=== PATIENT | female | born 1985 | race Caucasian/White ===

== ENCOUNTER 2021-09-19 07:54 | Outpatient (CLI) | payer BC, SELFPAY ==
[2021-09-19 08:47] LABS: Basophils % 0.3 %; Eosinophils % 0.5 %; Hematocrit 45.2 % (37.0-47.0); Lymphocytes # 0.9 10^3/uL (0.8-4.8); Lymphocytes % 15.6 %; Mean Corpuscular HGB Conc 33.2 g/dL (30.0-36.0); Mean Corpuscular Hemoglobin 28.4 pg (28.0-34.0); Mean Corpuscular Volume 85.4 fl (81-99); Mean Platelet Volume 13.3 fL (7.4-10.4); Monocytes # 0.9 10^3/uL (0.2-0.9); Monocytes % 15.6 %; Neutrophils # 3.92 10^3/uL (1.8-7.7); Neutrophils % 66.5 %; Nucleated Red Blood Cells % 0 %; Platelet Count 53 10^3/cmm (130-400); Red Blood Count 5.29 10^6/uL (4.1-5.3); Red Cell Distribution Width 11.9 % (12.1-15.1); White Blood Count 5.9 10^3/uL (4.0-10.0)
[2021-09-19 09:14] LABS: Estmated Average Glucose 212
[2021-09-19 09:22] LABS: Alanine Aminotransferase 22 U/L (0-33); Albumin Level 3.9 g/dL (3.5-5.2); Alkaline Phosphatase 94 IU/L (35-105); Aspartate Amino Transferase 18 U/L (0-32); Blood Urea Nitrogen 9 mg/dL (6-20); Calcium 8.2 mg/dL (8.5-10.5); Carbon Dioxide 24 mmol/L (22-29); Chloride 99 mmol/L (98-107); Chol HDL Ratio 3.47 mg/dL (0.0-4.40); Cholesterol 118 mg/dL (0-200); Globulin 2.5 g/dL (1.3-4.6); Glomerular Filtration Rate 178.6 mL/min (90-130); Glucose 219 mg/dL (65-115); HDL Cholesterol 34 mg/dL (60-100); LDL Cholesterol Calculated 38 mg/dL (50-129); LDL HDL Ratio 1.12 RATIO (0.00-3.22); Osmolality Calculated 287 mOsm/kg (285-295); Sodium 136 mmol/L (136-145); Thyroid Stimulating Hormone 0.33 uIU/mL (0.27-4.20); Total Bilirubin 0.3 mg/dL (0.15-1.2); Total Protein 6.4 g/dL (6.6-8.7); Triglycerides 232 mg/dL (0-150)
[2021-09-19 09:44] LABS: Slide Review Slide Review Perform
== END 2021-09-19 07:55 | disposition home or self-care (01) ==
LOC: LAB 08:04
PROVIDERS: PCP Registered Nurse; Visit Provider Registered Nurse
DX: Z00.00 Encounter for general adult medical examination without abnormal findings (principal)
CPT/HCPCS: 36415; 80053; 80061; 83036; 84443; 85025

== ENCOUNTER 2021-09-23 12:44 | Outpatient (CLI) | payer BC, SELFPAY ==
[2021-09-23 13:00] VITALS: BP 147/99; PULSE 94; RESP 16; TEMP 36.6; O2SAT 98; BMI 39.9
[2021-09-23 13:40] VITALS: BP 148/96; PULSE 90; RESP 16; TEMP 36.6; O2SAT 98
[2021-09-23 14:34] VITALS: BP 122/81; PULSE 86; RESP 16; TEMP 36.8; O2SAT 98
== END 2021-09-23 12:45 | disposition home or self-care (01) ==
LOC: OPS 12:46
PROVIDERS: PCP Registered Nurse; Visit Provider Registered Nurse
DX: U07.1 COVID-19 (principal)
CPT/HCPCS: 96365

== ENCOUNTER 2022-10-25 08:37 | Oncology outpatient (recurring) (ONCR) | payer OTHER, SELFPAY ==
[2022-10-25 10:04] LABS: Basophils % 0.5 %; Eosinophils # 0.1 10^3/uL (0.0-0.8); Eosinophils % 0.8 %; Hematocrit 42.7 % (37.0-47.0); Hemoglobin 13.6 g/dL (11.5-15.3); Lymphocytes # 1.9 10^3/uL (0.8-4.8); Lymphocytes % 22.8 %; Mean Corpuscular HGB Conc 31.9 g/dL (30.0-36.0); Mean Corpuscular Hemoglobin 27.1 pg (28.0-34.0); Mean Corpuscular Volume 85.1 fl (81-99); Mean Platelet Volume 14.5 fL (7.4-10.4); Monocytes # 0.5 10^3/uL (0.2-0.9); Monocytes % 6.1 %; Neutrophils # 5.88 10^3/uL (1.8-7.7); Nucleated Red Blood Cells % 0 %; Platelet Count 81 10^3/cmm (130-400); Red Blood Count 5.02 10^6/uL (4.1-5.3); Red Cell Distribution Width 12.2 % (12.1-15.1); White Blood Count 8.5 10^3/uL (4.0-10.0)
[2022-10-25 10:08] LABS: Erythrocyte Sedimentation Rate 5 mm/hr (0-15)
[2022-10-25 10:29] LABS: Alanine Aminotransferase 17 U/L (0-33); Albumin Level 3.8 g/dL (3.5-5.2); Alkaline Phosphatase 80 U/L (35-105); Anion Gap 12.9 (5-19); Aspartate Amino Transferase 15 U/L (0-32); Blood Urea Nitrogen 8 mg/dL (6-20); C Reactive Protein 4.1 mg/L (0.0-4.9); Calcium 8.9 mg/dL (8.5-10.5); Carbon Dioxide 26 mmol/L (22-29); Chloride 100 mmol/L (98-107); Glomerular Filtration Rate 177.7 mL/min (90-130); Glucose 139 mg/dL (65-115); Iron 60 ug/dL (37-145); Lactate Dehydrogenase 242 U/L (135-214); Osmolality Calculated 281 mOsm/kg (285-295); Percent Saturation 18.2 % (20-50); Potassium 3.9 mmol/L (3.5-5.1); Sodium 135 mmol/L (136-145); Total Bilirubin 0.2 mg/dL (0.15-1.2); Total Iron Binding Capacity 329 mcg/dl; Total Protein 6.8 g/dL (6.6-8.7); Unsaturated Iron Binding 269 ug/dL (112-347)
[2022-10-25 10:40] LABS: Slide Review Slide Review Perform
[2022-10-25 10:41] LABS: Vitamin B12 445 pg/mL (232-1245)
[2022-10-25 10:44] LABS: LAB Peripheral Smear Sent for Review
[2022-10-27 13:40] LABS: Anti-Nuclear Antibody Screen POSITIVE (NEGATIVE)
== END 2022-10-31 23:59 | disposition home or self-care (01) ==
LOC: ONCMED 08:37
PROVIDERS: PCP Registered Nurse; Visit Provider Internal Medicine Medical Oncology
DX: D69.6 Thrombocytopenia, unspecified (principal); D50.9 Iron deficiency anemia, unspecified; R53.83 Other fatigue; L40.9 Psoriasis, unspecified; R09.82 Postnasal drip; Z79.899 Other long term (current) drug therapy
CPT/HCPCS: 36415; 80053; 82607; 83540; 83550; 83615; 85025; 85651; 86038; 86140

== ENCOUNTER 2023-01-03 16:11 | Outpatient (CLI) | payer OTHER, SELFPAY ==
[2023-01-03 17:02] LABS: Basophils % 0.3 %; Eosinophils # 0.2 10^3/uL (0.0-0.8); Eosinophils % 1.5 %; Hematocrit 42.2 % (37.0-47.0); Hemoglobin 13.8 g/dL (11.5-15.3); Lymphocytes # 3.2 10^3/uL (0.8-4.8); Lymphocytes % 31.3 %; Mean Corpuscular HGB Conc 32.7 g/dL (30.0-36.0); Mean Corpuscular Hemoglobin 27.8 pg (28.0-34.0); Mean Corpuscular Volume 84.9 fl (81-99); Mean Platelet Volume 15.3 fL (7.4-10.4); Monocytes # 0.8 10^3/uL (0.2-0.9); Monocytes % 7.5 %; Neutrophils # 5.98 10^3/uL (1.8-7.7); Neutrophils % 58.9 %; Nucleated Red Blood Cells % 0 %; Platelet Count 72 10^3/cmm (130-400); Red Blood Count 4.97 10^6/uL (4.1-5.3); Red Cell Distribution Width 12.5 % (12.1-15.1); White Blood Count 10.2 10^3/uL (4.0-10.0)
== END 2023-01-03 16:12 | disposition home or self-care (01) ==
LOC: LAB 16:15
PROVIDERS: PCP Registered Nurse; Visit Provider Nurse Practitioner
DX: D69.3 Immune thrombocytopenic purpura (principal); Z86.39 Personal history of other endocrine, nutritional and metabolic disease
CPT/HCPCS: 36415; 85025

== ENCOUNTER 2023-02-23 09:12 | Outpatient (CLI) | payer OTHER, SELFPAY ==
[2023-02-23 09:55] LABS: Basophils # 0.1 10^3/uL (0.0-0.1); Basophils % 0.5 %; Eosinophils # 0.1 10^3/uL (0.0-0.8); Eosinophils % 1.3 %; Hematocrit 42.9 % (37.0-47.0); Hemoglobin 13.9 g/dL (11.5-15.3); Lymphocytes # 2.2 10^3/uL (0.8-4.8); Lymphocytes % 20.5 %; Mean Corpuscular HGB Conc 32.4 g/dL (30.0-36.0); Mean Corpuscular Hemoglobin 27.5 pg (28.0-34.0); Mean Corpuscular Volume 84.8 fl (81-99); Mean Platelet Volume 13.8 fL (7.4-10.4); Monocytes # 0.7 10^3/uL (0.2-0.9); Monocytes % 6.3 %; Neutrophils # 7.66 10^3/uL (1.8-7.7); Neutrophils % 70.4 %; Nucleated Red Blood Cells % 0 %; Platelet Count 81 10^3/cmm (130-400); Red Blood Count 5.06 10^6/uL (4.1-5.3); Red Cell Distribution Width 12.3 % (12.1-15.1); White Blood Count 10.9 10^3/uL (4.0-10.0)
[2023-02-23 10:03] LABS: Alanine Aminotransferase 15 U/L (0-33); Albumin Level 4.1 g/dL (3.5-5.2); Alkaline Phosphatase 80 U/L (35-105); Anion Gap 13.2 (5-19); Aspartate Amino Transferase 14 U/L (0-32); Blood Urea Nitrogen 8 mg/dL (6-20); Calcium 8.6 mg/dL (8.5-10.5); Carbon Dioxide 26 mmol/L (22-29); Chloride 102 mmol/L (98-107); Globulin 2.4 g/dL (1.3-4.6); Glomerular Filtration Rate 177.7 mL/min (90-130); Glucose 106 mg/dL (65-115); Osmolality Calculated 283 mOsm/kg (285-295); Potassium 4.2 mmol/L (3.5-5.1); Sodium 137 mmol/L (136-145); Total Bilirubin 0.3 mg/dL (0.15-1.2); Total Protein 6.5 g/dL (6.6-8.7)
[2023-02-23 10:18] LABS: Estmated Average Glucose 128; Hemoglobin A1C 6.1 % (4.0-6.0)
== END 2023-02-23 09:13 | disposition home or self-care (01) ==
PROVIDERS: PCP Registered Nurse; Visit Provider Registered Nurse
DX: E11.9 Type 2 diabetes mellitus without complications (principal)
CPT/HCPCS: 36415; 80053; 83036; 85025

== ENCOUNTER 2023-03-22 23:23 | Emergency (ER) | payer OTHER, SELFPAY ==
[2023-03-22 23:29] VITALS: BP 126/87; PULSE 140; RESP 17; TEMP 38.1; O2SAT 100; BMI 38.2
--- NOTE | 2023-03-22 23:31 | W.ED.ABDPA2 ---
HPI - Abdominal Pain General: Chief Complaint: Back Pain/Injury Stated Complaint: Chills, Back Pain Time Seen by Provider: 03/22/23 23:28 History of Present Illness: 37-year-old female comes in today with some mid back pain, chills, urinary urgency, and 2 episodes of nausea and vomiting. Patient reports just arriving back home from [place] after vacation. Patient has a history of diabetes mellitus type 2, hypertension, and hypothyroidism. Patient appears mildly unwell but not toxic. Patient appears in mild pain. Associated Symptoms: Reports nausea and vomiting (X2); Denies constipation and diarrhea Review of Systems General: Reports: 10 or more systems reviewed and unremarkable except in HPI and below Card: Denies: chest pain Resp: Denies: dyspnea GI: Reports: nausea and vomiting (X2); Denies: diarrhea or constipation : Reports: difficulty voiding Musc: Reports: back pain Skin/Breast: Denies: rash PFSH ED PFSH: Medical History (Updated 03/23/23 @ 02:13 by SUSHANT Velasquez) Autoimmune thrombocytopenia History of iron deficiency Hypertension Hypothyroidism Obesity Psoriasis Type 2 diabetes mellitus Surgical History (Updated 10/25/22 @ 09:22 by Thierry Simms MD) History of delivery 2012 History of dilation and curettage 2008 Family History (Updated 10/25/22 @ 08:51 by Keiry Heath LPN) Other Cancer Diabetes Hyperlipidemia Hypertension Psychiatric illness Suicide Denies family history of CAD (coronary artery disease) Clotting disorder Dementia Chronic kidney disease (CKD) Anesthesia complication Bleeding disorder Lung disease Stroke Social History (Updated 10/25/22 @ 08:50 by Keiry Heath LPN) Smoking and tobacco status: never smoked Physical Exam Const: COMMON NORMALS: alert HENMT: COMMON NORMALS: normocephalic HEAD & SCALP: normocephalic MOUTH: Normal oral and palatal mucosa present Neck/C-Spine: COMMON NORMALS: full ROM Resp: COMMON NORMALS: normal respiratory effort and clear to auscultation bilaterally AUSCULTATION: clear to auscultation bilaterally Cardio: COMMON NORMALS: regular rate and regular rhythm RATE: regular rate RHYTHM: regular rhythm GI: COMMON NORMALS: Soft to palpation and non-tender PALPATION: Yes Soft to palpation : COMMON NORMALS: Yes no CVA tenderness BLADDER/KIDNEY EXAM: Yes no CVA tenderness Back/Pelvis: COMMON NORMALS: no CVA tenderness Extremity: COMMON NORMALS: no pedal edema Neuro: SENSORIUM/ORIENTATION: Yes alert Skin: COMMON NORMALS: turgor normal GENERAL SKIN EXAM: turgor normal Course ED course: 0100, patient appeared in increased pain and discomfort. Palpated her low back is tender in the L5-S1 area. Patient was written for fentanyl 50 mcg and 15 mg of ketorolac. We will go ahead and do a CT scan to rule out other etiology including appendicitis, discitis, gallbladder disease, renal calculi. Vital Signs: Vital signs: Vital Signs Temperature 100.6 F H 03/22/23 23:29 Pulse Rate 111 H 03/23/23 02:00 Respiratory Rate 16 03/23/23 02:00 Blood Pressure 116/84 03/23/23 02:00 Pulse Oximetry 93 03/23/23 02:00 Oxygen Delivery Me thod Room Air 03/22/23 23:29 MDM - Abdominal Pain Medical Decision Making 37-year-old female comes in today for complaints of chills, back pain, and urinary frequency. Patient appears mildly unwell but not toxic. Patient has no CVA tenderness. Patient has some mild suprapubic tenderness on deep palpation. Bowel sounds are present. Skin is warm and dry. Vital signs are normal except for some elevation in temperature of 100.6, and a pulse of 140. Differential diagnosis includes but not limited to UTI, pyelonephritis, dehydration, gallbladder disease, renal calculi, gastroenteritis, appendicitis, discitis. BC showed a white count of 14,000, CMP was unremarkable except for some mild elevation of blood glucose at 198. Urinalysis had significant amount of blood, leukocyte Estrace, and trace white blood cells. CT of the abdomen pelvis noted some mild hydronephrosis to the right kidney and some inflammation of the bladder. I suspect patient probably has some mild pyelonephritis due to her symptoms. We will go ahead and treat with 1 g Rocephin and continue patient on ciprofloxacin at home. Patient was recommended to follow-up with primary care in 2 to 3 days for recheck. Patient reported understanding of care plan and was stable and released to home. Lab Data 03/22/23 23:45 03/22/23 23:45 Labs/Radiology: Radiology Impressions Abdomen/Pelvis CT 03/23/23 00:57 IMPRESSION: Mild right hydronephrosis with no obstructing stone or hydroureter. COMMENTS: Consistent with the [employer]'s Incidental Findings Committee white paper (J Am Kelly Radiol 2018): Any incidental renal lesion less than 1 cm or classified as too small to characterize, or any incidental cystic renal lesion characterized as simple-appearing, is likely benign. No follow-up imaging is recommended for these lesions per consensus recommendations based on imaging criteria. Laboratory Results WBC 14.7 10^3/uL (4.0-10.0) H 03/22/23 23:45 RBC 5.16 10^6/uL (4.1-5.3) 03/22/23 23:45 Hgb 14.2 g/dL (11.5-15.3) 03/22/23 23:45 Hct 43.9 % (37.0-47.0) 03/22/23 23:45 MCV 85.1 fl (81-99) 03/22/23 23:45 MCH 27.5 pg (28.0-34.0) L 03/22/23 23:45 MCHC 32.3 g/dL (30.0-36.0) 03/22/23 23:45 RDW 12.4 % (12.1-15.1) 03/22/23 23:45 Plt Count 90 10^3/cmm (130-400) L 03/22/23 23:45 MPV 13.3 fL (7.4-10.4) H 03/22/23 23:45 Neut % (Auto) 88.1 % 03/22/23 23:45 Lymph % (Auto) 9.1 % 03/22/23 23:45 [place] % (Auto) 0.9 % 03/22/23 23:45 Eos % (Auto) 0.8 % 03/22/23 23:45 Baso % (Auto) 0.3 % 03/22/23 23:45 Neut # (Auto) 12.94 10^3/uL (1.8-7.7) H 03/22/23 23:45 Lymph # (Auto) 1.3 10^3/uL (0.8-4.8) 03/22/23 23:45 [place] # (Auto) 0.1 10^3/uL (0.2-0.9) L 03/22/23 23:45 Eos # (Auto) 0.1 10^3/uL (0.0-0.8) 03/22/23 23:45 Baso # (Auto) 0.0 10^3/uL (0.0-0.1) 03/22/23 23:45 Nucleated RBC % (auto) 0 % 03/22/23 23:45 Nucleated RBCs # 0.0 /100WBC 03/22/23 23:45 Sodium 139 mmol/L (136-145) 03/22/23 23:45 Potassium 3.5 mmol/L (3.5-5.1) 03/22/23 23:45 Chloride 98 mmol/L (98-107) 03/22/23 23:45 Carbon Dioxide 29 mmol/L (22-29) 03/22/23 23:45 Anion Gap 15.5 (5-19) 03/22/23 23:45 BUN 11 mg/dL (6-20) 03/22/23 23:45 Creatinine 0.5 mg/dL (0.5-0.9) 03/22/23 23:45 GFR Calculation 137.4 mL/min (90-130) H 03/22/23 23:45 Glucose 198 mg/dL (65-115) H 03/22/23 23:45 Calculated Osmolality 293 mOsm/kg (285-295) 03/22/23 23:45 Calcium 9.7 mg/dL (8.5-10.5) 03/22/23 23:45 Total Bilirubin 0.3 mg/dL (0.15-1.2) 03/22/23 23:45 AST 13 U/L (0-32) 03/22/23 23:45 ALT 18 U/L (0-33) 03/22/23 23:45 Alkaline Phosphatase 109 U/L (35-105) H 03/22/23 23:45 Total Protein 7.4 g/dL (6.6-8.7) 03/22/23 23:45 Albumin 4.3 g/dL (3.5-5.2) 03/22/23 23:45 Globulin 3.1 g/dL (1.3-4.6) 03/22/23 23:45 Lipase 43 U/L (13-60) 03/22/23 23:45 HCG, Qual Negative (Negative) 03/22/23 23:45 Urine Color Yellow (Yellow) 03/23/23 00:00 Urine Appearance Hazy (CLEAR) A 03/23/23 00:00 Urine pH 6 (5-7) 03/23/23 00:00 Ur Specific [place] 1.020 (1.005-1.030) 03/23/23 00:00 Urine Protein 1+ (Negative) H 03/23/23 00:00 Urine Glucose (UA) 4+ (Normal) H 03/23/23 00:00 Urine Ketones 1+ (Negative) H 03/23/23 00:00 Urine Blood 3+ (Negative) H 03/23/23 00:00 Urine Nitrate Negative (Negative) 03/23/23 00:00 Urine Bilirubin Neg (Negative) 03/23/23 00:00 Urine Urobilinogen Neg mg/dL (Negative) 03/23/23 00:00 Ur Leukocyte Esterase Trace (Negative) H 03/23/23 00:00 Urine RBC 25-40 /hpf (0-2) H 03/23/23 00:00 Urine WBC 5-10 /hpf (0-5) H 03/23/23 00:00 Ur Squamous Epith Cells 0-4 /hpf (0-5) H 03/23/23 00:00 Amorphous Sediment Not Reportable 03/23/23 00:00 Urine Bacteria 3+ /hpf (NONE) H 03/23/23 00:00 EKG Data EKG 1: EKG interpretation date: 03/22/23 EKG interpretation time: 23:44 Prior EKG tracings: not available for review Interpretation: EKG shows a regular sinus tachycardic rhythm with elevated heart rate at [address] elevation or ectopy is noted. No prior exam was available for comparison. Computer generated interpretation: Sinus tachycardia with a rhythm of 138 bpm. Discharge Plan Discharge Patient Disposition: Home Clinical Impression: Pyelonephritis Condition: Stable Prescriptions: New ciprofloxacin HCl 500 mg tablet 500 mg PO BID Qty: 14 0RF hydrocodone-acetaminophen 5-325 mg tablet 1 tab PO Q6H PRN (Reason: pain (scale score 7-10)) Qty: 7 0RF ondansetron HCl 4 mg tablet 4 mg PO Q8H PRN (Reason: nausea and vomiting) Qty: 7 0RF No Action lisinopril 10 mg tablet 10 mg PO DAILY Mounjaro 7.5 mg/0.5 mL pen injector 7.5 mg SUBCUT .weekly thyroid (pork) [[employer] Thyroid] 15 mg tablet 15 mg PO DAILY metformin 1,000 mg tablet 1,000 mg PO BID Discharge Orders: Discharge ED (Routine); Ordered 03/23/23 Ordered By: Donald Mccollum Referrals: Christie Fitzgerald FNP [Primary Care Provider] - Discharge Diet: Usual diet Discharge Activity: Increase activity as tolerated Patient Instructions: Kidney Infection (ED) Activity Restrictions/Additional Instructions: Drink plenty of water and fluids. Take antibiotics as directed. Use acetaminophen and/or ibuprofen for fever. Use hydrocodone for severe pain. Follow-up with primary care in 3 to 5 days for recheck of urine. Return to ED for worsening symptoms. Coding Level of Care Code ED [employer] Manager for Candida Noland
[2023-03-23 00:10] LABS: Alanine Aminotransferase 18 U/L (0-33); Albumin Level 4.3 g/dL (3.5-5.2); Alkaline Phosphatase 109 U/L (35-105); Anion Gap 15.5 (5-19); Aspartate Amino Transferase 13 U/L (0-32); Blood Urea Nitrogen 11 mg/dL (6-20); Calcium 9.7 mg/dL (8.5-10.5); Carbon Dioxide 29 mmol/L (22-29); Chloride 98 mmol/L (98-107); Globulin 3.1 g/dL (1.3-4.6); Glomerular Filtration Rate 137.4 mL/min (90-130); Glucose 198 mg/dL (65-115); Lipase 43 U/L (13-60); Osmolality Calculated 293 mOsm/kg (285-295); Potassium 3.5 mmol/L (3.5-5.1); Sodium 139 mmol/L (136-145); Total Bilirubin 0.3 mg/dL (0.15-1.2); Total Protein 7.4 g/dL (6.6-8.7)
[2023-03-23 00:15] LABS: HCG, Serum Qual Negative (Negative)
[2023-03-23 00:21] LABS: Basophils % 0.3 %; Eosinophils # 0.1 10^3/uL (0.0-0.8); Eosinophils % 0.8 %; Hematocrit 43.9 % (37.0-47.0); Hemoglobin 14.2 g/dL (11.5-15.3); Lymphocytes # 1.3 10^3/uL (0.8-4.8); Lymphocytes % 9.1 %; Mean Corpuscular HGB Conc 32.3 g/dL (30.0-36.0); Mean Corpuscular Hemoglobin 27.5 pg (28.0-34.0); Mean Corpuscular Volume 85.1 fl (81-99); Mean Platelet Volume 13.3 fL (7.4-10.4); Monocytes # 0.1 10^3/uL (0.2-0.9); Monocytes % 0.9 %; Neutrophils # 12.94 10^3/uL (1.8-7.7); Neutrophils % 88.1 %; Nucleated Red Blood Cells % 0 %; Platelet Count 90 10^3/cmm (130-400); Red Blood Count 5.16 10^6/uL (4.1-5.3); Red Cell Distribution Width 12.4 % (12.1-15.1); White Blood Count 14.7 10^3/uL (4.0-10.0)
[2023-03-23 00:22] LABS: Slide Review Slide Review Perform
[2023-03-23] MEDS: acetaminophen 500 mg Tablet 1000 MG PO (00:25)
[2023-03-23] MEDS: sodium chloride 0.9% 1,000 ML 999 ML IV (00:26)
[2023-03-23 00:35] VITALS: BP 119/66; PULSE 121; RESP 16; O2SAT 98
--- NOTE | 2023-03-23 00:57 | CTR_ITS ---
PROCEDURE INFORMATION: Exam: CT Abdomen And Pelvis With Contrast Exam date and time: 03/23/2023 1:24 AM Age: 37 years old Clinical indication: Abdominal pain; Flank; Right; Additional info: Right flank pain radiating midline TECHNIQUE: Imaging protocol: Computed tomography of the abdomen and pelvis with contrast. Radiation optimization: All CT scans at this facility use at least one of these dose optimization techniques: automated exposure control; mA and/or kV adjustment per patient size (includes targeted exams where dose is matched to clinical indication); or iterative reconstruction. Contrast material: OMNI 350; Contrast volume: 100 ml; Contrast route: INTRAVENOUS (IV); REPORTING DATA: Count of CT and Cardiac NM exams in prior 12 months: This patient has received 0 known CTs and 0 known cardiac nuclear medicine studies in the 12 months prior to the current study. COMPARISON: No relevant prior studies available. RADIATION DOSE METRICS: Total DLP (mGy-cm): 1195.07 FINDINGS: Lungs: There is no acute disease noted in the lung bases. Liver: Normal. No mass. Gallbladder and bile ducts: There is no intrahepatic biliary ductal dilatation. The gallbladder is distended with no evidence of cholecystitis. Pancreas: The pancreas is within normal limits. Spleen: The spleen is unremarkable. Adrenal glands: The adrenal glands are unremarkable. Kidneys and ureters: There are bilateral subcentimeter renal cortical cysts, the largest is 7.2 mm in the right kidney. There is a mild right hydronephrosis but no obstructing renal stone. There is no hydroureter the urinary bladder is moderately distended with thickened irregular [place], underlying UTI can not be excluded, recommend urinalysis correlation as indicated. Stomach and bowel: Unremarkable. No obstruction. No mucosal thickening. Appendix: The appendix is visualized and contains air. Intraperitoneal space: There is no free intraperitoneal air or fluid collection. Vasculature: The origins of the celiac, SMA, renals and NARCISA are patent. There is no evidence of an aneurysm. Lymph nodes: There are no significantly enlarged lymph nodes according to CT criteria. Urinary bladder: See Kidneys and ureters finding. Reproductive: The uterus is anteverted and anteflexed. It is bulky and contains hypodensity in the endometrial cavity, this is likely related to the patient's cycle. Recommend clinical correlation. Bones/joints: There are no abnormal lytic or blastic lesions noted. There are no acute fractures. The spine is well aligned with no significant degenerative disease. Soft tissues: Unremarkable. CT/CT abdomen pelvis w con* [id number] IMPRESSION: Mild right hydronephrosis with no obstructing stone or hydroureter. COMMENTS: Consistent with the [employer] [employer]'s Incidental Findings Committee white paper (J Am Kelly Radiol 2018): Any incidental renal lesion less than 1 cm or classified as too small to characterize, or any incidental cystic renal lesion characterized as simple-appearing, is likely benign. No follow-up imaging is recommended for these lesions per consensus recommendations based on imaging criteria.
[2023-03-23] MEDS: iohexol 350 mg/mL 500 mL Btl (per mL) IV (01:07)
[2023-03-23 01:12] LABS: Add Urine Microscopic? YES; Bilirubin Urine Neg (Negative); Blood Urine 3+ (Negative); Glucose Urine UA 4+ (Normal); Ketones Urine 1+ (Negative); Leukocyte Esterase Urine Trace (Negative); Nitrate Urine Negative (Negative); Protein Urine 1+ (Negative); Urine Appearance Hazy (CLEAR); Urine Color Yellow (Yellow); Urobilinogen Urine Neg (Negative); pH Urine 6 (5-7)
[2023-03-23 01:13] LABS: Add Urine Culture? Yes; Bacteria Urine 3+ /hpf; RBC Urine 25-40 /hpf (0-2); Squamous Epithelial Cell Urine 0-4 /hpf (0-5)
[2023-03-23] MEDS: fentaNYL 50 mcg/mL INJ 2mL IVP (01:17)
[2023-03-23] MEDS: ketorolac 30 mg/mL INJ 15 MG IVP (01:17)
[2023-03-23] MEDS: ondansetron 2 mg/ML SDV 2 mL 4 MG IVP (01:49)
[2023-03-23 02:00] VITALS: BP 116/84; PULSE 111; RESP 16; O2SAT 93
[2023-03-23] MEDS: cefTRIAXone 1,000 MG in sodium chloride 0.9% (plus) 50 ML 100 MG IV (02:20)
[2023-03-23 02:37] VITALS: BP 116/84; PULSE 111; RESP 16; TEMP 38.1; O2SAT 93
== END 2023-03-23 02:38 | disposition home or self-care (01) ==
PROVIDERS: Emergency Provider Nurse Practitioner Family; PCP Registered Nurse
DX: N12 Tubulo-interstitial nephritis, not specified as acute or chronic (principal); Z79.84 Long term (current) use of oral hypoglycemic drugs; I10 Essential (primary) hypertension; E11.9 Type 2 diabetes mellitus without complications
CPT/HCPCS: 74177; 80053; 81001; 83690; 84703; 85025; 87077; 87086; 87186; 96365; 96375; 99285; J0696; J1885; J2405; J3010; J7030; Q9967

== ENCOUNTER 2023-04-24 15:59 | Oncology outpatient (recurring) (ONCR) | payer OTHER, SELFPAY ==
[2023-04-16 11:42] VITALS: BP 150/95; PULSE 96; TEMP 36.3; O2SAT 98
[2023-04-16 11:50] LABS: Basophils % 0.3 %; Eosinophils # 0.1 10^3/uL (0.0-0.8); Eosinophils % 0.8 %; Hematocrit 45.1 % (37.0-47.0); Hemoglobin 14.7 g/dL (11.5-15.3); Lymphocytes # 2.2 10^3/uL (0.8-4.8); Lymphocytes % 20.4 %; Mean Corpuscular HGB Conc 32.6 g/dL (30.0-36.0); Mean Corpuscular Hemoglobin 27.3 pg (28.0-34.0); Mean Corpuscular Volume 83.8 fl (81-99); Mean Platelet Volume 14.2 fL (7.4-10.4); Monocytes # 0.6 10^3/uL (0.2-0.9); Monocytes % 5.7 %; Neutrophils # 7.79 10^3/uL (1.8-7.7); Neutrophils % 72.5 %; Nucleated Red Blood Cells % 0 %; Platelet Count 71 10^3/cmm (130-400); Red Blood Count 5.38 10^6/uL (4.1-5.3); Red Cell Distribution Width 12.1 % (12.1-15.1); White Blood Count 10.7 10^3/uL (4.0-10.0)
[2023-04-16 12:15] LABS: Alanine Aminotransferase 18 U/L (0-33); Albumin Level 4.2 g/dL (3.5-5.2); Alkaline Phosphatase 87 U/L (35-105); Anion Gap 13.4 (5-19); Aspartate Amino Transferase 18 U/L (0-32); Blood Urea Nitrogen 12 mg/dL (6-20); Carbon Dioxide 27 mmol/L (22-29); Chloride 102 mmol/L (98-107); Globulin 2.6 g/dL (1.3-4.6); Glomerular Filtration Rate 176.8 mL/min (90-130); Glucose 148 mg/dL (65-115); Osmolality Calculated 289 mOsm/kg (285-295); Potassium 4.4 mmol/L (3.5-5.1); Sodium 138 mmol/L (136-145); Total Bilirubin 0.3 mg/dL (0.15-1.2); Total Protein 6.8 g/dL (6.6-8.7)
== END 2023-05-03 23:59 | disposition home or self-care (01) ==
PROVIDERS: PCP Registered Nurse; Visit Provider Internal Medicine Medical Oncology
DX: D69.3 Immune thrombocytopenic purpura (principal)
CPT/HCPCS: 36415; 80053; 85025

== ENCOUNTER 2024-09-05 09:29 | Outpatient (CLI) | payer OTHER, SELFPAY ==
[2024-09-05 10:15] LABS: Basophils % 0.3 %; Eosinophils # 0.1 10^3/uL (0.0-0.8); Eosinophils % 1.2 %; Lymphocytes # 2.7 10^3/uL (0.8-4.8); Lymphocytes % 26.9 %; Mean Corpuscular HGB Conc 33.6 g/dL (30-55); Mean Corpuscular Hemoglobin 28.4 pg (27-33); Mean Corpuscular Volume 84.5 fl (85-98); Mean Platelet Volume 13.4 fL (7.4-10.4); Monocytes # 0.7 10^3/uL (0.2-0.9); Monocytes % 6.7 %; Neutrophils # 6.54 10^3/uL (1.8-7.7); Neutrophils % 64.3 %; Nucleated Red Blood Cells % 0 %; Platelet Count 79 10^3/cmm (157-399); Red Blood Count 5.21 10^6/uL (3.85-5.65); Red Cell Distribution Width 11.9 % (12.1-15.1); White Blood Count 10.16 10^3/uL (3.29-11.43)
[2024-09-05 10:20] LABS: Slide Review Slide Review Perform
[2024-09-05 10:45] LABS: Alanine Aminotransferase 24 U/L (0-33); Albumin Level 4.4 g/dL (3.5-5.2); Alkaline Phosphatase 103 U/L (35-105); Anion Gap 15.5 (5-19); Aspartate Amino Transferase 16 U/L (0-32); Blood Urea Nitrogen 8 mg/dL (6-20); Calcium 9.4 mg/dL (8.5-10.5); Carbon Dioxide 27 mmol/L (22-29); Chloride 99 mmol/L (98-107); Cholesterol 143 mg/dL (0-200); Globulin 2.8 g/dL (1.3-4.6); Glomerular Filtration Rate 245.2 mL/min (90-130); Glucose 124 mg/dL (65-115); HDL Cholesterol 42 mg/dL (60-100); LDL Cholesterol Calculated 44 mg/dL (50-129); LDL HDL Ratio 1.05 RATIO (0.00-3.22); Osmolality Calculated 284 mOsm/kg (285-295); Potassium 4.5 mmol/L (3.5-5.1); Sodium 137 mmol/L (136-145); Thyroid Stimulating Hormone 1.18 uIU/mL (0.27-4.20); Total Bilirubin 0.3 mg/dL (0.15-1.2); Total Protein 7.2 g/dL (6.6-8.7); Triglycerides 287 mg/dL (0-150)
[2024-09-05 11:06] LABS: Estmated Average Glucose 128; Hemoglobin A1C 6.1 % (4.0-6.0)
== END 2024-09-05 09:30 | disposition home or self-care (01) ==
LOC: LAB 09:38
PROVIDERS: PCP Registered Nurse; Visit Provider Registered Nurse
DX: I10 Essential (primary) hypertension (principal); E03.9 Hypothyroidism, unspecified; E11.9 Type 2 diabetes mellitus without complications
CPT/HCPCS: 36415; 80053; 80061; 83036; 84443; 85025

== ENCOUNTER 2025-03-28 08:11 | Outpatient (CLI) | payer OTHER, SELFPAY ==
[2025-03-28 08:49] LABS: Hematocrit 44.3 % (36-47); Hemoglobin 14.40 g/dL (11.27-16.99); Mean Corpuscular HGB Conc 32.5 g/dL (30-55); Mean Corpuscular Hemoglobin 27.5 pg (27-33); Mean Corpuscular Volume 84.5 fl (85-98); Platelet Count 81 10^3/cmm (157-399); Red Blood Count 5.24 10^6/uL (3.85-5.65); White Blood Count 11.03 10^3/uL (3.29-11.43)
[2025-03-28 09:05] LABS: Estmated Average Glucose 128; Hemoglobin A1C 6.1 % (4.0-6.0)
[2025-03-28 09:13] LABS: Alanine Aminotransferase 21 U/L (0-33); Albumin Level 4.0 g/dL (3.5-5.2); Alkaline Phosphatase 90 U/L (35-105); Anion Gap 15.3 (5-19); Aspartate Amino Transferase 16 U/L (0-32); Blood Urea Nitrogen 12 mg/dL (6-20); Calcium 9.0 mg/dL (8.5-10.5); Carbon Dioxide 25 mmol/L (22-29); Chloride 102 mmol/L (98-107); Globulin 3.0 g/dL (1.3-4.6); Glucose 121 mg/dL (65-115); Osmolality Calculated 287 mOsm/kg (285-295); Potassium 4.3 mmol/L (3.5-5.1); Sodium 138 mmol/L (136-145); Thyroid Stimulating Hormone 1.35 uIU/mL (0.27-4.20); Total Protein 7.0 g/dL (6.6-8.7)
[2025-03-28 09:15] LABS: Absolute Segmented Neutrophil 6.7 10/cmm (1.6-7.1); Atypical Lymphs 0.0 % (0-5); Band Neutrophils Absolute 0.0 10^3/cmm (0.0-1.2); Total Cells Counted 100 (0-100)
== END 2025-03-28 08:12 | disposition home or self-care (01) ==
PROVIDERS: PCP Registered Nurse; Visit Provider Registered Nurse
DX: I10 Essential (primary) hypertension (principal); E11.9 Type 2 diabetes mellitus without complications
CPT/HCPCS: 36415; 80053; 83036; 84443; 85007; 85027